=== PATIENT | male | born 1955 | race Caucasian/White ===

== ENCOUNTER 2018-12-21 11:50 | Emergency (ER) | payer OTHER ==
[~2018-12-21] VITALS: Ht 160 cm; Wt 44.5 kg
--- NOTE | 2018-12-21 12:00 | NUR ---
PT BIB FAMILY C/O DIZZINESS, NAUSEA AND VOMITING THAT STARTED 1/2 HOUR [employer], PT IS AAOX3 TOGOLESE SPEAKING ONLY, NOT IN RESPIRATORY DISTRESS, V/S STABLE, KEPT RESTED AND COMFORTABLE, WILL CONTINUE TO MONITOR.
--- NOTE | 2018-12-21 12:00 | NUR ---
IV LINE ESTABLISHED, LABS DRAWNED AND SENT TO LAB.
--- NOTE | 2018-12-21 12:10 | NUR ---
SEEN AND EXAMINED BY DR. ROWLEY.
[2018-12-21] MEDS ORDERED: ONDANSETRON HCL/PF 4 MG/2 ML VIAL ONE (12:24)
--- NOTE | 2018-12-21 12:26 | NUR ---
PT IS WHEELED TO CT SCAN VIA [facility].
[2018-12-21 12:30] LABS: BASOPHILS # (AUTO) 0.1 /CMM (0.0-0.2); BASOPHILS % (AUTO) 0.9 % (0.0-2.0); EOSINOPHILS % (AUTO) 0.7 % (0.0-6.0); HEMATOCRIT 40 % (39-51); HEMOGLOBIN 13.3 g/dL (13.5-17.5); LYMPHOCYTES # (AUTO) 2.1 /CMM (0.8-4.8); LYMPHOCYTES % (AUTO) 31.2 % (20.0-44.0); MEAN CORPUSCULAR HGB CONC 33 g/dl (31.0-36.0); MEAN CORPUSCULAR VOLUME 91 fL (80-96); MONOCYTES # (AUTO) 0.6 /CMM (0.1-1.30); MONOCYTES % (AUTO) 9.6 % (2.0-12.0); NEUTROPHILS # (AUTO) 3.8 /CMM (1.8-8.9); NEUTROPHILS % (AUTO) 57.6 % (43.0-81.0); PLATELET COUNT (AUTO) 203 /CMM (150-450); RED BLOOD CELL COUNT(AUTO) 4.39 MIL/uL (4.5-6.0); WHITE BLOOD COUNT (AUTO) 6.6 K/uL (4.3-11.0)
[2018-12-21] MEDS ORDERED: IV NS 0.9% 500 ML BAG IV ONE (12:30)
[2018-12-21] MEDS ORDERED: ONDANSETRON HCL/PF 4 MG/2 ML VIAL IVP ONE (12:30)
[2018-12-21 12:37] LABS: CALCIUM, SERUM 8.9 mg/dL (8.5-10.1); CARBON DIOXIDE 28 mmol/L (21-32); CHLORIDE 103 mmol/L (98-107); CREATININE 0.8 mg/dL (0.6-1.3); GLUCOSE 128 mg/dL (74-106); SODIUM SERUM 139 mmol/L (136-145); UREA NITROGEN, BLOOD 18 mg/dL (7-18)
--- NOTE | 2018-12-21 12:42 | NUR ---
PT IS BACK FROM THE CT SCAN UNABLE TO FINISH THE CT SCAN DUE TO DIZZINESS. AWARE.
[2018-12-21 12:43] LABS: ALANINE AMINOTRANSFERASE 21 U/L (12-78); ALBUMIN 4.3 g/dL (3.4-5.0); ALKALINE PHOSPHATASE 96 U/L (46-116); ASPARTATE AMINOTRANSFERASE 13 U/L (15-37); BILIRUBIN,DIRECT 0.2 mg/dL (0.0-0.2); TOTAL PROTEIN, SERUM 7.3 g/dL (6.4-8.2)
--- NOTE | 2018-12-21 13:36 | NUR ---
PT IS WHEELED TO CT SCAN.
[2018-12-21] MEDS ORDERED: [UNRECOGNIZED DRUG - OTHER] PO (14:12)
[2018-12-21] MEDS ORDERED: CALC500T51 PO (14:12)
[2018-12-21] MEDS ORDERED: [UNRECOGNIZED DRUG - OTHER] PO (14:12)
[2018-12-21] MEDS ORDERED: LORA1TAB PO (14:12)
[2018-12-21] MEDS ORDERED: [UNRECOGNIZED DRUG - OTHER] PO (14:12)
[2018-12-21] MEDS ORDERED: ASPI-1152 PO (14:12)
[2018-12-21] MEDS ORDERED: PROP10TA10 PO (14:12)
[2018-12-21] MEDS ORDERED: ATOR20TA PO (14:12)
[2018-12-21] MEDS ORDERED: TAMS-12 PO (14:12)
[2018-12-21] MEDS ORDERED: ERGO500040 PO (14:12)
--- NOTE | 2018-12-21 17:56 | NUR ---
IV removed. Catheter intact and site benign. Pressure and 4x4 applied to site. No bleeding noted. Patient does not wish to proceed with medical care recommended by Dr. Maria. Patient given information related to possible complications, up to and including , which could occur as a result of leaving the hospital at this time. Patient verbalizes understanding of risks involved due to leaving against medical advice. Patient has signed AMA form.
[2018-12-21 17:57] VITALS: BP 103/66
== END 2018-12-21 18:02 | disposition left against medical advice (07) ==
LOC: ER 11:52 → UNDOADMIN 17:22 → MED 17:22 → ER 18:02
DX: R42 Dizziness and giddiness (principal); R11.2 Nausea with vomiting, unspecified; F17.200 Nicotine dependence, unspecified, uncomplicated; Z79.82 Long term (current) use of aspirin; Z79.899 Other long term (current) drug therapy; Z86.73 Personal history of transient ischemic attack (TIA), and cerebral infarction without residual deficits
CPT/HCPCS: 36415; 70450; 71045; 80048; 80076; 84484; 85025; 85730; 93005; 96374; 99284; J2405; J7040

== ENCOUNTER 2023-07-28 03:08 | Inpatient (IN) | payer OTHER, MEDICARE ==
[~2023-07-28] VITALS: Ht 152.4 cm; Wt 49.4 kg
[~2023-07-28 03:08] MED LIST: ASPI-1420 PO; ATOR20TA PO; CALC500T53 PO; ERGO500040 PO; LORA1TAB PO; PROP10TA10 PO; TAMS-12 PO; [UNRECOGNIZED DRUG - OTHER] PO; [UNRECOGNIZED DRUG - OTHER] PO; [UNRECOGNIZED DRUG - OTHER] PO
[2023-07-28] MEDS ORDERED: MORPHINE SULFATE INJ 4 MG/ML DISP.SYRIN ONE (03:27)
[2023-07-28] MEDS ORDERED: ONDANSETRON HCL/PF 4 MG/2 ML VIAL ONE (03:27)
[2023-07-28] MEDS ORDERED: MORPHINE SULFATE INJ 2 MG/ML DISP.SYRIN IV ONE (03:30)
[2023-07-28] MEDS ORDERED: ONDANSETRON HCL/PF 4 MG/2 ML VIAL IVP ONE (03:30)
[2023-07-28 03:53] LABS: BASOPHILS # (AUTO) 0.1 K/uL (0.0-0.2); BASOPHILS % (AUTO) 0.6 % (0.0-2.0); EOSINOPHILS # (AUTO) 0.1 K/uL (0.0-0.7); EOSINOPHILS % (AUTO) 0.9 % (0.0-6.0); HEMATOCRIT 44 % (39-51); HEMOGLOBIN 14.4 g/dL (13.5-17.5); LYMPHOCYTES # (AUTO) 1.8 K/uL (0.8-4.8); LYMPHOCYTES % (AUTO) 17.1 % (20.0-44.0); MEAN CORPUSCULAR HEMOGLOBIN 29 PG (26.0-33.0); MEAN CORPUSCULAR HGB CONC 33 g/dl (31.0-36.0); MEAN CORPUSCULAR VOLUME 87 fL (80-96); MONOCYTES # (AUTO) 0.9 K/uL (0.1-1.30); MONOCYTES % (AUTO) 8.4 % (2.0-12.0); NEUTROPHILS # (AUTO) 7.5 K/uL (1.8-8.9); PLATELET COUNT (AUTO) 248 K/uL (150-450); RED BLOOD CELL COUNT(AUTO) 4.99 MIL/uL (4.5-6.0); RED CELL DISTRIBUTION WIDTH 13.9 % (11.5-15.0); WHITE BLOOD COUNT (AUTO) 10.3 K/uL (4.3-11.0)
[2023-07-28 04:07] LABS: ALBUMIN 4.7 g/dL (3.4-5.0); BILIRUBIN,DIRECT 0.1 mg/dL (0.0-0.2); CALCIUM, SERUM 9.6 mg/dL (8.5-10.1); CREATININE 0.8 mg/dL (0.6-1.3); POTASSIUM 3.4 mmol/L (3.5-5.1); TOTAL PROTEIN, SERUM 8.5 g/dL (6.4-8.2)
[2023-07-28] MEDS ORDERED: ONDA4TAB11 PO (05:04)
[2023-07-28] MEDS ORDERED: CETI10TA14 PO (08:47)
[2023-07-28] MEDS ORDERED: OMEP40CA21 PO (08:47)
[2023-07-28 12:14] VITALS: BP 135/83; TEMP 98.6
[2023-07-28] MEDS ORDERED: MORPHINE SULFATE INJ 2 MG/ML DISP.SYRIN IV PRN (13:00)
[2023-07-28] MEDS ORDERED: Z GUARD REMEDY 4 OZ OINT TP PRN (13:00)
[2023-07-28] MEDS ORDERED: ONDANSETRON HCL/PF 4 MG/2 ML VIAL IVP PRN (13:00)
[2023-07-28] MEDS ORDERED: ACETAMINOPHEN 325 MG TABLET PO PRN (13:00)
[2023-07-28] MEDS ORDERED: LORAZEPAM 0.5 MG TABLET PO PRN (13:00)
[2023-07-28] MEDS ORDERED: LORAZEPAM 1 MG TABLET PO PRN (13:00)
[2023-07-28] MEDS: LORAZEPAM INJ 2 MG/ML VIAL IV PRN (13:15)
[2023-07-28] MEDS: ENOXAPARIN SODIUM 40 MG/0.4 ML DISP.SYRIN SQ SCH (13:18)
[2023-07-28] MEDS: IV LR 1000 ML 1,000 ML IV PRN (14:12)
[2023-07-28 16:00] VITALS: BP 116/79; TEMP 98.6; O2SAT 99
[2023-07-28 20:00] VITALS: BP 117/79; TEMP 98.4; O2SAT 97
[2023-07-29] MEDS: IV LR 1000 ML 1,000 ML IV PRN ×2 (00:10→16:33)
[2023-07-29] MEDS: LORAZEPAM INJ 2 MG/ML VIAL IV PRN ×2 (02:36→13:26)
[2023-07-29 06:32] LABS: HEMATOCRIT 39 % (39-51); HEMOGLOBIN 13.2 g/dL (13.5-17.5); LYMPHOCYTES # (AUTO) 0.9 K/uL (0.8-4.8); LYMPHOCYTES % (AUTO) 8.1 % (20.0-44.0); MEAN CORPUSCULAR HEMOGLOBIN 29 PG (26.0-33.0); MEAN CORPUSCULAR HGB CONC 34 g/dl (31.0-36.0); MEAN CORPUSCULAR VOLUME 86 fL (80-96); MONOCYTES # (AUTO) 0.7 K/uL (0.1-1.30); MONOCYTES % (AUTO) 6.1 % (2.0-12.0); NEUTROPHILS # (AUTO) 9.2 K/uL (1.8-8.9); NEUTROPHILS % (AUTO) 85.8 % (43.0-81.0); PLATELET COUNT (AUTO) 236 K/uL (150-450); RED BLOOD CELL COUNT(AUTO) 4.54 MIL/uL (4.5-6.0); RED CELL DISTRIBUTION WIDTH 13.8 % (11.5-15.0); WHITE BLOOD COUNT (AUTO) 10.7 K/uL (4.3-11.0)
[2023-07-29 06:36] LABS: CREATININE 0.9 mg/dL (0.6-1.3); MAGNESIUM 2.1 mg/dL (1.8-2.4); PHOSPHORUS 2.8 mg/dL (2.5-4.9); POTASSIUM 3.8 mmol/L (3.5-5.1)
[2023-07-29 08:00] VITALS: BP 115/65; TEMP 98.6; O2SAT 98
[2023-07-29] MEDS: PANTOPRAZOLE 40 MG VIAL IV SCH (08:05)
[2023-07-29] MEDS: ASPIRIN EC 81 MG TABLET.DR PO SCH (08:16)
[2023-07-29] MEDS: cetrizine 10 MG TABLET PO SCH (08:16)
[2023-07-29] MEDS ORDERED: DIATR MEGLU/DIATRIZOATE SODIUM 120 ML BOTTLE (GASTROGRAPHIN) ONE (11:10)
[2023-07-29] MEDS: ENOXAPARIN SODIUM 40 MG/0.4 ML DISP.SYRIN SQ SCH (13:00)
[2023-07-29 20:00] VITALS: BP 121/74; TEMP 97; TEMP 99.2; O2SAT 97; O2SAT 99
[2023-07-30] MEDS: LORAZEPAM INJ 2 MG/ML VIAL IV PRN ×2 (03:53→15:20)
[2023-07-30] MEDS: IV LR 1000 ML 1,000 ML IV PRN ×2 (06:05→17:15)
[2023-07-30 06:49] LABS: BASOPHILS % (AUTO) 0.5 % (0.0-2.0); EOSINOPHILS % (AUTO) 0.2 % (0.0-6.0); HEMATOCRIT 37 % (39-51); HEMOGLOBIN 12.3 g/dL (13.5-17.5); LYMPHOCYTES # (AUTO) 1.5 K/uL (0.8-4.8); LYMPHOCYTES % (AUTO) 15.1 % (20.0-44.0); MEAN CORPUSCULAR HEMOGLOBIN 30 PG (26.0-33.0); MEAN CORPUSCULAR HGB CONC 34 g/dl (31.0-36.0); MEAN CORPUSCULAR VOLUME 88 fL (80-96); MONOCYTES # (AUTO) 0.9 K/uL (0.1-1.30); MONOCYTES % (AUTO) 9.7 % (2.0-12.0); NEUTROPHILS # (AUTO) 7.2 K/uL (1.8-8.9); NEUTROPHILS % (AUTO) 74.5 % (43.0-81.0); PLATELET COUNT (AUTO) 209 K/uL (150-450); RED BLOOD CELL COUNT(AUTO) 4.17 MIL/uL (4.5-6.0); RED CELL DISTRIBUTION WIDTH 13.6 % (11.5-15.0); WHITE BLOOD COUNT (AUTO) 9.7 K/uL (4.3-11.0)
[2023-07-30 06:51] LABS: CALCIUM, SERUM 8.9 mg/dL (8.5-10.1); CREATININE 0.9 mg/dL (0.6-1.3); MAGNESIUM 2.3 mg/dL (1.8-2.4); PHOSPHORUS 2.7 mg/dL (2.5-4.9); POTASSIUM 3.7 mmol/L (3.5-5.1)
[2023-07-30 08:34] VITALS: BP 118/71; TEMP 99; O2SAT 97
[2023-07-30] MEDS: ASPIRIN EC 81 MG TABLET.DR PO SCH (08:50)
[2023-07-30] MEDS: cetrizine 10 MG TABLET PO SCH (08:51)
[2023-07-30] MEDS: PANTOPRAZOLE 40 MG VIAL IV SCH (08:51)
[2023-07-30] MEDS: ENOXAPARIN SODIUM 40 MG/0.4 ML DISP.SYRIN SQ SCH (13:08)
[2023-07-30 16:07] VITALS: BP 130/88; TEMP 98.6; O2SAT 98
[2023-07-30 20:00] VITALS: BP 105/67; TEMP 99; O2SAT 96
[2023-07-31] MEDS: LORAZEPAM INJ 2 MG/ML VIAL IV PRN (02:34)
[2023-07-31 05:56] LABS: BASOPHILS % (AUTO) 0.6 % (0.0-2.0); EOSINOPHILS # (AUTO) 0.1 K/uL (0.0-0.7); EOSINOPHILS % (AUTO) 1.3 % (0.0-6.0); HEMATOCRIT 33 % (39-51); HEMOGLOBIN 11.4 g/dL (13.5-17.5); LYMPHOCYTES # (AUTO) 1.7 K/uL (0.8-4.8); LYMPHOCYTES % (AUTO) 22.7 % (20.0-44.0); MEAN CORPUSCULAR HEMOGLOBIN 31 PG (26.0-33.0); MEAN CORPUSCULAR HGB CONC 35 g/dl (31.0-36.0); MEAN CORPUSCULAR VOLUME 88 fL (80-96); MONOCYTES # (AUTO) 0.8 K/uL (0.1-1.30); MONOCYTES % (AUTO) 10.1 % (2.0-12.0); NEUTROPHILS % (AUTO) 65.3 % (43.0-81.0); PLATELET COUNT (AUTO) 191 K/uL (150-450); RED BLOOD CELL COUNT(AUTO) 3.75 MIL/uL (4.5-6.0); RED CELL DISTRIBUTION WIDTH 13.5 % (11.5-15.0); WHITE BLOOD COUNT (AUTO) 7.6 K/uL (4.3-11.0)
[2023-07-31] MEDS: IV LR 1000 ML 1,000 ML IV PRN (06:02)
[2023-07-31 06:38] LABS: CALCIUM, SERUM 8.3 mg/dL (8.5-10.1); CREATININE 0.9 mg/dL (0.6-1.3); MAGNESIUM 2.1 mg/dL (1.8-2.4); PHOSPHORUS 2.8 mg/dL (2.5-4.9); POTASSIUM 3.7 mmol/L (3.5-5.1)
[2023-07-31 08:00] VITALS: BP 110/65; TEMP 99; O2SAT 95
[2023-07-31] MEDS: cetrizine 10 MG TABLET PO SCH (08:27)
[2023-07-31] MEDS: ASPIRIN EC 81 MG TABLET.DR PO SCH (08:27)
[2023-07-31] MEDS ORDERED: PANTOPRAZOLE 40 MG TABLET.DR PO SCH (11:30)
[2023-07-31] MEDS: ENOXAPARIN SODIUM 40 MG/0.4 ML DISP.SYRIN SQ SCH (12:42)
== END 2023-07-31 13:00 | disposition home or self-care (01) | DRG 247 ==
LOC: ER 03:11 → MED 10:43
PROVIDERS: ADMIT Nurse Practitioner Acute Care; ATTEND Nurse Practitioner Acute Care
DX: K56.50 Intestinal adhesions [bands], unspecified as to partial versus complete obstruction (principal); G20.A1 Parkinson's disease without dyskinesia, without mention of fluctuations; E78.5 Hyperlipidemia, unspecified; G40.909 Epilepsy, unspecified, not intractable, without status epilepticus; N40.0 Benign prostatic hyperplasia without lower urinary tract symptoms; Z87.11 Personal history of peptic ulcer disease; Z90.3 Acquired absence of stomach [part of]; E87.6 Hypokalemia
CPT/HCPCS: 36415; 74250-TC; 80048-TC; 80061-TC; 80076-TC; 83690-TC; 83735-TC; 84100-TC; 85025-TC; A4223; C9113; G0378; J1650; J2060; J2270; J2405; J7030; J7120; Q9963

== ENCOUNTER 2024-01-09 16:23 | Emergency (ER) | payer MEDICARE, OTHER ==
[~2024-01-09] VITALS: Ht 165.1 cm; Wt 59.9 kg
[~2024-01-09 16:23] MED LIST changes: -ATOR20TA PO; -CALC500T53 PO; +CETI10TA14 PO; -ERGO500040 PO; +OMEP40CA21 PO; +ONDA4TAB11 PO; -PROP10TA10 PO; -TAMS-12 PO; -[UNRECOGNIZED DRUG - OTHER] PO; -[UNRECOGNIZED DRUG - OTHER] PO; -[UNRECOGNIZED DRUG - OTHER] PO
[2024-01-09] MEDS ORDERED: ONDANSETRON HCL/PF 4 MG/2 ML VIAL ONE (17:34)
[2024-01-09] MEDS ORDERED: KETOROLAC TROMETHAMINE 15 MG/ML VIAL ONE (17:34)
[2024-01-09] MEDS: IV NS 0.9% 1,000 ML BAG IV ONE (17:44)
[2024-01-09] MEDS: KETOROLAC TROMETHAMINE 15 MG/ML VIAL IV ONE (17:45)
[2024-01-09] MEDS: ONDANSETRON HCL/PF 4 MG/2 ML VIAL IVP ONE (17:46)
[2024-01-09 17:51] LABS: BASOPHILS # (AUTO) 0.1 K/uL (0.0-0.2); BASOPHILS % (AUTO) 0.7 % (0.0-2.0); EOSINOPHILS % (AUTO) 0.1 % (0.0-6.0); HEMATOCRIT 39 % (39-51); LYMPHOCYTES # (AUTO) 0.8 K/uL (0.8-4.8); LYMPHOCYTES % (AUTO) 6.2 % (20.0-44.0); MEAN CORPUSCULAR HEMOGLOBIN 29 PG (26.0-33.0); MEAN CORPUSCULAR HGB CONC 33 g/dl (31.0-36.0); MEAN CORPUSCULAR VOLUME 88 fL (80-96); MONOCYTES # (AUTO) 0.5 K/uL (0.1-1.30); MONOCYTES % (AUTO) 4.4 % (2.0-12.0); NEUTROPHILS # (AUTO) 10.8 K/uL (1.8-8.9); NEUTROPHILS % (AUTO) 88.6 % (43.0-81.0); PLATELET COUNT (AUTO) 227 K/uL (150-450); RED BLOOD CELL COUNT(AUTO) 4.47 MIL/uL (4.5-6.0); RED CELL DISTRIBUTION WIDTH 13.8 % (11.5-15.0); WHITE BLOOD COUNT (AUTO) 12.2 K/uL (4.3-11.0)
[2024-01-09 18:23] LABS: APPEARANCE,URINE CLEAR (CLEAR); BILIRUBIN,URINE NEGATIVE (NEGATIVE); BLOOD, URINE TRACE-INTA Ery/uL (NEGATIVE); COLOR,URINE YELLOW (YELLOW); KETONES,URINE 2+ mg/dL (NEGATIVE); LEUKOCYTE ESTERASE ,URINE NEGATIVE (NEGATIVE); NITRITE, URINE NEGATIVE (NEGATIVE); PROTEIN,URINE NEGATIVE (NEGATIVE); UGLUCOSE NEGATIVE (NEGATIVE)
[2024-01-09 18:27] LABS: CALCIUM, SERUM 9.2 mg/dL (8.5-10.1); CREATININE 1.2 mg/dL (0.6-1.3); POTASSIUM 4.1 mmol/L (3.5-5.1)
[2024-01-09 18:33] LABS: ALBUMIN 4.6 g/dL (3.4-5.0); BILIRUBIN,DIRECT 0.3 mg/dL (0.0-0.2); BILIRUBIN,TOTAL 1.5 mg/dL (0.2-1.0); TOTAL PROTEIN, SERUM 8.2 g/dL (6.4-8.2)
[2024-01-09 18:40] LABS: WBC,URINE NONE SEEN /HPF (0-3)
[2024-01-09 18:41] LABS: ADD URINE CULTURE NO; BACTERIA,URINE 1+ /HPF (None Seen); SQUAMOUS EPITHELIAL CELL,UR Few /HPF (None Seen)
[2024-01-09] MEDS ORDERED: TAMSULOSIN 0.4 MG CAP.SR.24H ONE (19:03)
[2024-01-09] MEDS: TAMSULOSIN 0.4 MG CAP.SR.24H PO ONE (19:04)
[2024-01-09] MEDS ORDERED: ONDA4TAB11 PO (19:16)
[2024-01-09] MEDS ORDERED: TAMS-12 PO (19:16)
[2024-01-09] MEDS ORDERED: IBUP-1957 PO (19:16)
[2024-01-09 19:20] VITALS: BP 118/74; TEMP 98.3; O2SAT 98
== END 2024-01-09 19:21 | disposition home or self-care (01) ==
LOC: ER 16:40
DX: N20.0 Calculus of kidney (principal); N13.30 Unspecified hydronephrosis; K21.9 Gastro-esophageal reflux disease without esophagitis; F17.200 Nicotine dependence, unspecified, uncomplicated; Z87.442 Personal history of urinary calculi
CPT/HCPCS: 99285; 74176; 96374; 96361; 96375; 85025; 80048; 83690; 80076; 81001; 36415; J2405; J7030; J1885